=== PATIENT | female | born 1955 | race Caucasian/White ===

== ENCOUNTER → 2023-05-24 11:37 | Outpatient (CLI) | payer OTHER, SELFPAY ==
--- NOTE | ~2023-05-24 | US_ITS ---
EXAMINATION: US transvaginal DATE: 05/24/2023 12:12 INDICATION: Postmenopausal bleeding. History of polyps. Uterine prolapse. Comparison:No prior studies for comparison. TECHNIQUE: Multiple transabdominal and endovaginal sonographic images of the pelvis performed. FINDINGS: The uterus measures 5.6 x 2.5 x 4.4 cm. There is an echogenic area in the uterine fundus an teriorly measuring approximately 1.4 cm, likely a uterine fibroid. The endometrial complex measures 4 mm. The right ovary measures 2.4 x 1 x 2.1 cm and the left ovary measures 1.9 x 1.2 x 1.6 cm. There are small follicles in each ovary. Normal doppler signal in both ovaries. There is no free fluid in the pelvis. There are no abnormal masses seen on either side. IMPRESSION: 1. Mildly prominent endometrium measuring 4 mm. 2: Echogenic ill-defined mass uterine fundus anteriorly, likely a fibroid measuring 1.4 cm. Reviewed, dictated and finalized at location B. IMPRESSION: 1. Mildly prominent endometrium measuring 4 mm. 2: Echogenic ill-defined mass uterine fundus anteriorly, likely a fibroid sav uring 1.4 cm.
== END ==
PROVIDERS: PCP Family Medicine; Visit Provider Obstetrics & Gynecology Gynecology
DX: N95.0 Postmenopausal bleeding (principal)
CPT/HCPCS: 76830

== ENCOUNTER → 2023-10-09 10:12 | Outpatient (CLI) | payer OTHER, SELFPAY ==
--- NOTE | ~2023-10-09 | MM_ITS ---
EXAMINATION: MM screening chip BI w kendra HISTORY: Screening mammogram TECHNIQUE: Craniocaudal and mediolateral oblique 3-D tomosynthesis images were obtained and synthetic 2-D images were generated. CAD analysis was submitted and interpreted. COMPARISON: 03/20/2005 bilateral screening mammogram BREAST PARENCHYMAL COMPOSITION: The breasts are heterogeneously dense, which may obscure small masses . FINDINGS: There is an asymmetric opacity in the very posterior lower inner left breast (best demonstr ated on craniocaudal Tomosynthesis image 23/78). Diagnostic left mammogram and left breast ultrasound examination are recommended. Right breast asymmetries are noted. Diagnostic right mammogram and right breast ultrasound examinatio n are recommended. IMPRESSION: 1. Bilateral mammographic asymmetries 2. Bilateral diagnostic mammogram and breast ultrasound examination are recommended BI-RADS Category 0: Incomplete: Needs additional imaging evaluation. Reviewed, dictated and finalized at location B. INE TECHNICIAN IMPRESSION: 1. Bilateral mammographic asymmetries 2. Bilateral diagnostic mammogram and breast ultrasound examination are recomme nded BI-RADS Category 0: Incomplete: Needs additional imaging evaluation.
--- NOTE | ~2023-10-09 | DEXA_ITS ---
Bone Density Report Name: SUMAN BATISTA Age: 67 Sex: Female Ethnicity: White Date of : 1955 Indication: postmenopausal; screening for osteoporosis; height loss; Referring Provider: YOLY DAVID Study: Bone densitometry was performed. Exam Date: October 09, 2023 Accession number: [id number] Bone Density: Region BMD T-score Z-score Classification AP Spine (L1-L4) 0.937 -1.0 1.0 Normal Femoral Neck (Left) 0.821 -0.3 1.5 Normal Total Hip (Left) 0.884 -0.5 1.0 Normal Femoral Neck (Right) 0.811 -0.3 1.4 Normal Total Hip (Right) 0.838 -0.9 0.6 Normal Total Hip Mean 0.861 -0.7 0.8 Normal World Health Organization criteria for BMD impression classify patients as: Normal (T-score at or above -1.0), Osteopenia (T-score between -1.0 and -2.5), or Osteoporosis (T-score at or below -2.5). 10-year Fracture Risk: FRAX not reported because: All T-scores for Spine Total, Hip Total, Femoral Neck at or above -1.0 Previous Exams: Region Exam Age BMD T-score BMD Change BMD Change Date g/cm2 vs Baseline vs Previous AP Spine(L1-L4) 10/09/2023 67 0.937 -1.0 -0.139 -0.139 03/13/2004 48 1.076 0.3 Total Hip(Left) 10/09/2023 67 0.884 -0.5 -0.134 -0.134 03/13/2004 48 1.018 0.6 Total Hip(Right) 10/09/2023 67 0.838 -0.9 -0.130 -0.130 03/13/2004 48 0.968 0.2 *Denotes significance at 95% confidence level, LSC for AP Spine = 0.022 g/cm2, LSC for Total Hip = 0.027 g/cm2 Clinical Information Provided by Patient: Patient maximum height was 67 Menopause Age: 46 No regular weight bearing exercise Drinks caffeinated beverages Onset of menses at age 12 Number of children 2 Impression: The patient has normal bone mass. No significant bone loss was observed. Discussion: BONE DENSITY IS ABOVE THE MINIMUM DESIRABLE LEVEL AT ALL SKELETAL SITES TESTED. This patient?s bone mineral density is above the minimum desirable level (T-score -1.0 or better) at all sites measured. The patient should follow a healthful lifestyle (good nutrition with adequate calcium and vitamin D, and appropriate weight-bearing exercise). Follow-Up: Consider repeating this study in 5 years or sooner if there is some new clinical indication. Reported by: [facility] on 10/09/2023 10:26:00 AM. Reviewed, dictated and finalized at location Emerson MERAZ
== END ==
PROVIDERS: PCP Obstetrics & Gynecology Gynecology; Visit Provider Obstetrics & Gynecology Gynecology
DX: Z12.31 Encounter for screening mammogram for malignant neoplasm of breast (principal); Z78.0 Asymptomatic menopausal state; R92.8 Other abnormal and inconclusive findings on diagnostic imaging of breast
CPT/HCPCS: 77063; 77067; 77080

== ENCOUNTER 2023-12-17 08:07 | Outpatient (CLI) | payer OTHER, SELFPAY ==
--- NOTE | ~2023-12-17 | MMUS_ITS ---
EXAMINATION: MM diagnostic chip BI w kendra, US breast BI complete HISTORY: Bilateral mammographic asymmetries reported on October 09, 2023 bilateral screening mammogr am examination TECHNIQUE: Additional 3-D tomosynthesis images of both breasts were performed and synthetic 2-D image s were generated. CAD analysis was submitted and interpreted. High resolution complete bilateral tayo st ultrasound examination including all 4 quadrants and subareolar areas was performed. COMPARISON: October 09, 2023 bilateral screening mammogram FINDINGS: MAMMOGRAPHIC FINDINGS: A circumscribed low-density 6 mm opacity is confirmed in the very posterior lower inner quadrant of t he left breast. This is benign mammographic features. No suspicious reproducible mass of either breast is evident. ULTRASOUND: The 6 mm low-density circumscribed opacity in the posterior lower inner quadrant left breast is not d etected sonographically. No suspicious mass or shadowing of either breast is detected. IMPRESSION: 1. Benign finding 2. Routine annual mammographic screening is recommended BI-RADS Category 2: Benign finding(s). Reviewed, dictated and finalized at location A. IMPRESSION: 1. Benign finding 2. Routine annual mammographic screening is recommended BI-RADS Category 2: Benign finding(s).
== END 2023-12-17 08:08 ==
LOC: MICIMG 08:08
PROVIDERS: PCP Obstetrics & Gynecology Gynecology; Visit Provider Obstetrics & Gynecology Gynecology
DX: R92.8 Other abnormal and inconclusive findings on diagnostic imaging of breast (principal)
CPT/HCPCS: 76641; 77062; 77066; G0279

== ENCOUNTER 2025-04-05 07:42 | Outpatient (CLI) | payer OTHER, SELFPAY ==
[2025-04-05 08:09] LABS: Hematocrit 39.7 % (37.0-47.0); Hemoglobin 13.2 g/dL (12.0-15.0); Immature Granulocyte Percent A 0.2 % (0-0.5); Lymphocytes Absolute Auto 1.44 K/mm3 (0.9-3.2); Mean Corpuscular HGB Conc 33.2 g/dl (32-36); Mean Corpuscular Hemoglobin 29.9 pg (26-34); Mean Corpuscular Volume 89.8 fl (80-100); Nucleated Red Blood Cells Absolute Auto 0.000 K/mm3 (0.0-0.012); Nucleated Red Blood Cells Perc 0.0 % (0.0-0.2); Platelet Count Result 245 k/mm3 (150-375); Red Blood Count 4.42 M/mm3 (4.2-5.4); White Blood Count 6.1 K/mm3 (4.5-10.0)
[2025-04-05 08:20] LABS: Hemoglobin A1C 5.7 % (<5.7)
[2025-04-05 08:24] LABS: Alanine Aminotransferase 22 U/L (6-35); Albumin Level 4.2 g/dL (3.5-5.1); Alkaline Phosphatase 52 U/L (38-126); Anion Gap 7 mmol/L (4-12); Aspartate Amino Transferase 38 U/L (14-36); Bilirubin,Total 1.0 mg/dL (0.2-1.3); Blood Urea Nitrogen 10 mg/dL (7-17); Calcium 9.2 mg/dL (8.4-10.2); Carbon Dioxide 26 mmol/L (22-30); Chloride 107 mmol/L (98-107); Cholesterol 198 mg/dL (0-200); Estimated Glomerular Filt Rate > 60; Glucose 106 mg/dL (65-110); HDL Direct 61 mg/dL; Potassium 4.1 mmol/L (3.4-5.0); Sodium 140 mmol/L (137-145); Total Protein 7.5 g/dL (6.3-8.2); Triglycerides 93 mg/dL (<150)
== END 2025-04-05 07:43 | disposition home or self-care (01) ==
LOC: ANHLAB 07:44
PROVIDERS: PCP Family Medicine; Visit Provider Student in an Organized Health Care Education/Training Program
DX: E78.5 Hyperlipidemia, unspecified (principal); I10 Essential (primary) hypertension; R73.01 Impaired fasting glucose
CPT/HCPCS: 36415; 80053; 80061; 83036; 85025